=== PATIENT | female | born 1985 | race Caucasian/White ===

== ENCOUNTER 2016-08-02 12:33 | Emergency (ER) | payer OTHER ==
[~2016-08-02] VITALS: Ht 162.6 cm; Wt 65.8 kg
[2016-08-02 12:40] VITALS: BP 138/82
--- NOTE | 2016-08-02 12:50 | NUR ---
HEADACHE WITH NAUSEA X3 DAYS. ALSO LOWER ABD PAIN X3 DAYS. C/O RIGHT EAR PAIN WELL; SKIN IS PINK/WARM/DRY; AAOX4 WITH EVEN AND STEADY GAIT; LUNGS CLEAR BL; HR EVEN AND REGULAR; PT DENIES ANY FEVER, CP, SOB, OR COUGH AT THIS TIME; PATIENT STATES PAIN OF 8/10 AT THIS TIME; VSS; PATIENT POSITIONED FOR COMFORT; HOB ELEVATED; BEDRAILS UP X2; BED DOWN. ER MD MADE AWARE OF PT STATUS.
--- NOTE | 2016-08-02 12:58 | NUR ---
AAO PT BEING ASSESS BY DR DORAN AT BEDSIDE
[2016-08-02] MEDS ORDERED: ONDANSETRON 4 MG ODT PO ONE (13:05)
--- NOTE | 2016-08-02 13:31 | NUR ---
Patient discharged with v/s stable. Written and verbal after care instructions given and explained. Patient alert, oriented and verbalized understanding of instructions. Ambulatory with steady gait. All questions addressed prior to discharge. ID band removed. Patient advised to follow up with PMD. Rx of LOMOTIL, ZOFRAN, AND NAPROXIN given. Patient educated on indication of medication including possible reaction and side effects. Opportunity to ask questions provided and answered.
[2016-08-02 13:32] VITALS: BP 135/80
== END 2016-08-02 13:31 | disposition home or self-care (01) ==
LOC: MED 12:33
DX: B34.9 Viral infection, unspecified (principal)
CPT/HCPCS: 81002; 81025; 99283; S0119

== ENCOUNTER 2017-11-30 15:14 | Emergency (ER) | payer SELFPAY ==
[~2017-11-30] VITALS: Ht 162.6 cm; Wt 78.9 kg
[2017-11-30 15:20] VITALS: BP 143/89
--- NOTE | 2017-11-30 15:30 | NUR ---
PT AMBULATES TO BED 12
--- NOTE | 2017-11-30 16:00 | NUR ---
ASSUMED CARE OF PT AT THIS TIME. C/O INTERMITTENT LOWER PELVIC CRAMPING AND LOW BACK PAIN W/ MILD VAGINAL SPOTTING X 5 DAYS. DENIES N/V/D; SKIN IS PINK/WARM/DRY; AAOX4 WITH EVEN AND STEADY GAIT; LUNGS CLEAR BL; HR EVEN AND REGULAR; PATIENT STATES PAIN OF 5/10; VSS; PATIENT POSITIONED FOR COMFORT; HOB ELEVATED; BEDRAILS UP X2; BED DOWN. ER MD MADE AWARE OF PT STATUS. WILL CONTINUE TO MONITOR.
[2017-11-30 16:59] LABS: BASOPHILS # (AUTO) 0.1 K/uL (0.00-0.22); BASOPHILS % (AUTO) 0.8 % (0.0-2.0); EOSINOPHILS # (AUTO) 0.2 K/uL (0-0.4); EOSINOPHILS % (AUTO) 1.9 % (0.0-4.0); HEMATOCRIT 41.7 % (36-48); HEMOGLOBIN 13.8 g/dL (12.0-16.0); LYMPHOCYTES # (AUTO) 3.5 K/uL (2.5-16.5); LYMPHOCYTES % (AUTO) 34.5 % (20.5-51.1); MEAN CORPUSCULAR HEMOGLOBIN 28 pg (27-31); MEAN CORPUSCULAR HGB CONC 33 g/dL (33-37); MEAN CORPUSCULAR VOLUME 84.3 fL (80-94); MONOCYTES # (AUTO) 0.6 K/uL (0.8-1.0); MONOCYTES % (AUTO) 6.4 % (1.7-9.3); NEUTROPHILS # (AUTO) 5.7 K/uL (1.8-7.7); NEUTROPHILS % (AUTO) 56.4 % (42.2-75.2); PLATELET COUNT (AUTO) 282 K/uL (140-450); RED BLOOD CELL COUNT(AUTO) 4.95 MIL/uL (4.20-5.40); RED CELL DISTRIBUTION WIDTH 13.2 % (11.6-13.7); WHITE BLOOD COUNT (AUTO) 10.1 K/uL (4.8-10.8)
--- NOTE | 2017-11-30 17:00 | NUR ---
PT RESTING IN [facility] AT THIS TIME. PT NEEDS MET. WILL CONTINUE TO MONITOR.
[2017-11-30 17:08] LABS: BILIRUBIN,URINE NEGATIVE (NEGATIVE); BLOOD, URINE 3+ (NEGATIVE); COLOR,URINE YELLOW (YELLOW); LEUKOCYTE ESTERASE ,URINE NEGATIVE (NEGATIVE); NITRITE, URINE NEGATIVE (NEGATIVE); UGLUCOSE NEGATIVE (NEGATIVE)
[2017-11-30 17:36] LABS: APPEARANCE,URINE SLIGHTLY HAZY (CLEAR)
[2017-11-30 17:43] LABS: RBC,URINE 0-5 (RARE) /HPF (0-5); WBC,URINE 0-5 (RARE) /HPF (0-5)
--- NOTE | 2017-11-30 18:39 | NUR ---
Patient discharged with v/s stable. Written and verbal after care instructions given and explained to parent/guardian. Parent/Guardian verbalized understanding. steady gait. All questions addressed prior to discharge. Advised to follow up with animal nutrition consultant
[2017-11-30 18:49] VITALS: BP 127/72
== END 2017-11-30 18:39 | disposition home or self-care (01) ==
LOC: MED 15:14
DX: N93.8 Other specified abnormal uterine and vaginal bleeding (principal); R10.9 Unspecified abdominal pain; R11.2 Nausea with vomiting, unspecified
CPT/HCPCS: 36415; 76817; 81001; 81025; 84702; 85025; 86900; 86901; 99285; Q0092

== ENCOUNTER 2019-07-17 21:17 | Emergency (ER) | payer SELFPAY ==
[~2019-07-17] VITALS: Ht 160 cm; Wt 78.9 kg
[2019-07-17 21:45] VITALS: BP 144/99
--- NOTE | 2019-07-17 21:48 | NUR ---
TO LOBBY A/W BED AMBULATORY
--- NOTE | 2019-07-17 22:14 | NUR ---
Pt ambulated to [facility].
--- NOTE | 2019-07-17 22:26 | NUR ---
PATIENT SITTING UP IN CHAIR C. ASSESSMENT COMPLETED: BIB SELF REPORTING PRESSURE HEADACHE STARTING 3 DAYS AGO FOCUSED OVER RIGHT EYE. STATES 3 DAYS AGO SHE WOKE UP WITH A RASH ON HER RIGHT FOREHEAD SPREADING TO EYE. NO DISCHARGE FROM EYE REPORTED. PATIENT STATES NO NVD, COUGH, FEVER OR SOB. AAO. NO VISION CHANGES REPORTED.
[2019-07-17] MEDS ORDERED: TETRACAINE HCL/PF 0.5% OPTH 4 ML BTL OP ONE (22:30)
[2019-07-17] MEDS ORDERED: FLUORESCEIN OPTH STRIP 1 MG OP ONE (22:30)
[2019-07-17] MEDS ORDERED: KETOROLAC 30 MG/ML VIAL IM ONE (22:40)
[2019-07-17 23:07] VITALS: BP 132/86
--- NOTE | 2019-07-17 23:07 | NUR ---
Patient discharged with v/s stable. She states relief with 2/10 tollerable pain. Written and verbal after care instructions given and explained. Patient alert, oriented and verbalized understanding of instructions. Ambulatory with steady gait. All questions addressed prior to discharge. ID band removed. Patient advised to follow up with PMD and when to return to ER. Rx of Acyclovir, Prednisone, and [place] given. Patient educated on indication of medication including possible reaction and side effects. Opportunity to ask questions provided and answered.
== END 2019-07-17 23:07 | disposition home or self-care (01) ==
LOC: MED 21:17
DX: B02.9 Zoster without complications (principal)
CPT/HCPCS: 81025; 96372; 99283; J1885

== ENCOUNTER 2023-06-22 17:11 | Emergency (ER) | payer BC ==
[~2023-06-22] VITALS: Ht 160 cm; Wt 83.0 kg
[2023-06-22 17:44] VITALS: BP 122/74; PULSE 78; RESP 15; TEMP 97.8; O2SAT 100
[2023-06-22] MEDS ORDERED: PROPARACAINE 0.5% OPTH 15 ML BTL OP ONE (18:20)
[2023-06-22] MEDS ORDERED: FLUORESCEIN OPTH STRIP 1 MG OP ONE (18:20)
[2023-06-22] MEDS ORDERED: BACI-418 TP (18:41)
[2023-06-22] MEDS ORDERED: IBUP-1842 PO (18:41)
[2023-06-22] MEDS ORDERED: ERYT5OIN51 LEFT EYE (18:41)
[2023-06-22] MEDS ORDERED: KETOROLAC 30 MG/ML VIAL IM ONE (19:05)
[2023-06-22 19:30] VITALS: BP 129/75; PULSE 80; RESP 16; TEMP 97.8; O2SAT 100
== END 2023-06-22 19:30 | disposition home or self-care (01) ==
LOC: MED 17:11
DX: T26.42XA Burn of left eye and adnexa, part unspecified, initial encounter (principal); S05.02XA Injury of conjunctiva and corneal abrasion without foreign body, left eye, initial encounter; X58.XXXA Exposure to other specified factors, initial encounter; Y93.89 Activity, other specified; Y92.89 Other specified places as the place of occurrence of the external cause; Y99.8 Other external cause status
CPT/HCPCS: 81025; 96372; 99283; J1885